=== PATIENT | female | born 1995 | race Caucasian/White ===

== ENCOUNTER → 2017-10-29 18:33 | Outpatient (CLI) | payer BC, SELFPAY ==
[2017-10-29 22:15] LABS: Chlamydia Trachomatis by PCR Negative (Negative); Neisserai gonorrhoeae by PCR Negative (Negative); Probe Check PASS; Sample Adequacy Control PASS; Specimen Processing Control PASS
== END ==
PROVIDERS: Visit Provider Obstetrics & Gynecology
DX: Z11.3 Encounter for screening for infections with a predominantly sexual mode of transmission (principal)
CPT/HCPCS: 87491; 87591

== ENCOUNTER → 2017-11-26 15:18 | Outpatient (CLI) | payer BC, SELFPAY ==
[2017-11-26 17:37] LABS: Absolute Lymphocyte Count 1.87 X10^3/ul (0.83-4.51); Absolute Neutrophil Count 5.2 X10^3/uL (2.0-7.7); Basophil# 0.02 X10^3/uL; Basophil% 0.2 % (0-1); Eosinophil# 0.28 X10^3/uL; Eosinophils% 3.3 % (0-5); Hematocrit 36.2 % (37-47); Hemoglobin 12.5 g/dl (12.0-15.0); Lymphocyte # 1.87 X10^3/ul (4.0); Lymphocyte % 22.3 % (19-41); Mean Corp Hgb Conc 34.5 g/gl (32-36); Mean Corpuscular Volume 81.2 fL (81-99); Mean Platelet Vol. 12.2 fl (6.2-12.0); Monocyte# 0.96 X10^3/uL; Monocyte% 11.5 % (0-10); Neutrophil % 62.2 % (47-70); Platelet Count 159 K/mm3 (150-450); RBC Distribution Width CV 15.2 % (11.6-14.6); RBC Distribution Width SD 44.2 fl (35.1-43.9); Red Blood Count 4.46 M/mm3 (4.2-5.4); White Blood Count 8.4 K/mm3 (4.4-11.0)
[2017-11-26 17:39] LABS: POSITIVE COUNT NO; POSITIVE DIFFERENTIAL NO; POSITIVE MORPHOLOGY NO
[2017-11-26 17:52] LABS: Thyroid Stim Hormone (TSH) 5.31 uIU/mL (0.358-3.74)
[2017-11-26 17:55] LABS: Amphetamine Urine VISTA NEGATIVE (<1000 ng/mL); Barbiturate Urine VISTA NEGATIVE (< 200 ng/mL); Benzodiazepine Urine VISTA NEGATIVE (< 200 ng/mL); Cocaine Urine VISTA NEGATIVE (< 300 ng/mL); Ecstacy Urine VISTA NEGATIVE (< 500 ng/mL); Methadone Urine VISTA NEGATIVE (< 300 ng/mL); PCP Urine VISTA NEGATIVE (< 25 ng/mL); THC Urine VISTA NEGATIVE (< 50 ng/mL); Vista UDS pH Range 6
[2017-11-26 18:07] LABS: Color, Urine Yellow (Yellow); Glucose, Dipstick Normal (Normal); Ketone-Dipstick Negative (Negative); Leukocyte Esterase-Dipstick 25 /ul (Negative); Nitrite-Dipstick Negative (Negative); Occult Blood-Urine Negative /ul (Negative); Protein-Dipstick Negative (Negative); Urine Bilirubin Dipstick Negative (Negative); Urine Clarity Sl. Cloudy (Clear); Urine Urobilinogen Normal (Normal); Urine pH 6.5 (5.0 - 8.0)
[2017-11-26 19:08] LABS: COTININE Drug Screen Negative (<200 ng/mL)
[2017-11-27 13:58] LABS: HIV - WCH Non-Reactive (Nonreactive); Rubella IgG 56.9 IU/mL; Vitamin D,25 Hydroxy 22.8 ng/mL (29.95-100.01)
[2017-11-28 08:41] LABS: HEPATITIS B SURFACE AG Negative (Negative); Hep C Antibodies 0.1 s/co ratio (0.0-0.9)
[2017-11-29 03:58] LABS: Prenatal RPR NONREACTIVE (NONREACTIVE)
[2017-11-29 14:09] LABS: Free T3 3.4 pg/mL (2.18-3.98); T4 Free Direct 1.04 ng/dL (0.76-1.46)
[2017-12-02 22:08] LABS: Thyroid Peroxidase AB 7 IU/mL (0-34)
[2017-12-03 10:29] LABS: Thyroglobulin Antibody < 1.0 IU/mL (0.0-0.9)
== END ==
PROVIDERS: Visit Provider Obstetrics & Gynecology
DX: Z34.82 Encounter for supervision of other normal pregnancy, second trimester (principal)
CPT/HCPCS: 36415; 80307; 81002; 82306; 84439; 84443; 84481; 85025; 86376; 86703; 86762; 86800; 86803; 87340

== ENCOUNTER → 2017-12-11 09:48 | Outpatient (CLI) | payer BC, SELFPAY | PROVIDERS: Visit Provider Obstetrics & Gynecology | DX: E03.9 Hypothyroidism, unspecified (principal) | CPT/HCPCS: 76536 ==

== ENCOUNTER → 2018-02-18 15:08 | Outpatient (CLI) | payer BC, MEDICAID, SELFPAY ==
[2018-02-18 18:08] LABS: Hematocrit 32.9 % (37-47); Hemoglobin 10.6 g/dl (12.0-15.0); Mean Corp Hgb Conc 32.2 g/gl (32-36); Mean Corpuscular Hgb 27.5 pg (27.0-32.0); Mean Corpuscular Volume 85.5 fL (81-99); Mean Platelet Vol. 11.4 fl (6.2-12.0); Platelet Count 206 K/mm3 (150-450); RBC Distribution Width CV 12.6 % (11.6-14.6); RBC Distribution Width SD 38.6 fl (35.1-43.9); Red Blood Count 3.85 M/mm3 (4.2-5.4); Scan Indicated on CBC? Y/N NO; White Blood Count 11.4 K/mm3 (4.4-11.0)
[2018-02-18 18:21] LABS: Free T3 2.2 pg/mL (2.18-3.98); Glucose Challenge Gest 1H 50g 112 mg/dL (70-140); T4 Free Direct 0.94 ng/dL (0.76-1.46); Thyroid Stim Hormone (TSH) 1.74 uIU/mL (0.358-3.74)
== END ==
PROVIDERS: Visit Provider Obstetrics & Gynecology
DX: Z34.82 Encounter for supervision of other normal pregnancy, second trimester (principal)
CPT/HCPCS: 36415; 82950; 84439; 84443; 84481; 85027; 86850

== ENCOUNTER 2018-02-25 16:20 | Emergency (ER) | payer BC, MEDICAID, SELFPAY ==
[2018-02-25 16:22] VITALS: BP 156/78; PULSE 99; RESP 18; TEMP 36.9; O2SAT 100; BMI 21.6
--- NOTE | 2018-02-25 16:41 | EKG12_ITS ---
Test Reason : SOB CP Blood Pressure : / mmHG Vent. Rate : 125 BPM Atrial Rate : 125 BPM P-R Int : 130 ms QRS Dur : 080 ms QT Int : 294 ms P-R-T Axes : 059 038 043 degrees QTc Int : 424 ms Sinus tachycardia Cannot rule out Inferior infarct , age undetermined Abnormal ECG Confirmed by ANTHONY HAYDEN, JANETTE ([id number]), book or script editor MARILEE ROSALES ([id number]) on 02/28/2018 1:36:07 PM Referred By: HERBIE Confirmed By:JANETTE CRUZ MD
--- NOTE | 2018-02-25 16:45 | RAD_ITS ---
STUDY: X-RAY CHEST REASON FOR EXAM: Female, 22 years old. Shortness of breath and chest pain at 28 weeks . TECHNIQUE: Single AP portable view of the chest. The patient was shielded during the examination. COMPARISON: None. FINDINGS: Telemetry wires overlie the chest. The lungs are clear and expanded. There is no demonstrated pleural abnormality. Normal size heart. Normal mediastinum and vernon. Normal visualized pulmonary arteries. Normal visualized aortic arch and descending thoracic aorta. Normal visualized thoracic spine. Normal visualized ribs, clavicles, and shoulders. There is no demonstrated abnormality of the visualized soft tissue structures of the upper abdomen. RAD/Chest 1 View (Portable) IMPRESSION: Normal x-ray examination of the chest. Electronically Signed: Marcello Argueta DO at 16:56 EST Tel [phone], Service support ,
--- NOTE | 2018-02-25 16:45 | NURSING ---
NO OLD EKGS
[2018-02-25] MEDS: 0.9% Normal Saline 1,000 ML 150 ML IV (17:04)
[2018-02-25 17:05] VITALS: PULSE 116; RESP 15; O2SAT 100; O2SAT 99
[2018-02-25 17:19] LABS: Absolute Lymphocyte Count 1.99 X10^3/ul (0.83-4.51); Absolute Neutrophil Count 8.5 X10^3/uL (2.0-7.7); Basophil# 0.06 X10^3/uL; Basophil% 0.5 % (0-1); Eosinophil# 0.26 X10^3/uL; Eosinophils% 2.2 % (0-5); Hematocrit 32.1 % (37-47); Hemoglobin 10.3 g/dl (12.0-15.0); Lymphocyte # 1.99 X10^3/ul (4.0); Lymphocyte % 16.8 % (19-41); Mean Corp Hgb Conc 32.1 g/gl (32-36); Mean Platelet Vol. 10.8 fl (6.2-12.0); Monocyte# 0.89 X10^3/uL; Monocyte% 7.5 % (0-10); Neutrophil # 8.45 X10^3/uL (2.7-7.7); Neutrophil % 71.1 % (47-70); Platelet Count 200 K/mm3 (150-450); RBC Distribution Width CV 12.6 % (11.6-14.6); RBC Distribution Width SD 37.7 fl (35.1-43.9); Red Blood Count 3.82 M/mm3 (4.2-5.4); White Blood Count 11.9 K/mm3 (4.4-11.0)
[2018-02-25 17:22] LABS: POSITIVE COUNT NO; POSITIVE DIFFERENTIAL NO; POSITIVE MORPHOLOGY NO
[2018-02-25 17:29] LABS: AST(SGOT) 11 U/L (15-37); Alanine Aminotransfer ALT/SGPT 17 U/L (13-56); Albumin, Serum 3.1 g/dL (3.2-5.0); Alkaline Phosphatase 57 U/L (45-117); Anion Gap 8 (5-15); BUN 9 mg/dL (7-18); BUN/Creat Ratio 16.8 RATIO (10-20); Bilirubin, Direct 0.09 mg/dL (0.00-0.30); Calcium,Total 8.7 mg/dL (8.5-10.1); Chloride 107 mmol/L (98-107); Creatinine, Serum 0.54 mg/dL (0.55-1.02); EST Glomerular Filtration Rate 154 mL/min (>60); Est Glom Filt Rate - Afr Amer 186 mL/min (>60); Estimated Creatinine Clearance 167.64 ml/min; Globulin 3.7 g/dL (2.2-4.2); Glucose 88 mg/dL (74-106); Lipase 114 U/L (73-393); Potassium 3.7 mmol/L (3.5-5.1); Protein, Total 6.8 g/dL (6.4-8.2); Sodium Level 138 mmol/L (136-145)
--- NOTE | 2018-02-25 17:53 | ED.RN ---
LAB CALLS WITH CRITICAL RESULTS OF D-MD DARA AND PRIMARY RN NOTIFIED.
[2018-02-25 18:00] VITALS: BP 118/89; PULSE 88; RESP 15; O2SAT 99
--- NOTE | 2018-02-25 19:40 | ED.DCSUM_ITS ---
- ER Visit Summary Date of Service: 02/25/18 Chief Complaint: Chest pain, shortness of breath History of Present Illness: The patient is a 22 F who is currently 28 weeks . She states she has had shortness of breath for several months. She had chest pain for the past 2 days since starting iron pills. She does point to the lower sternal area and epigastric region. Physical Examination: Blood pressure is 156/78, temperature 98.4, heart rate 99, respiratory rate 18, pulse ox 100% on room air. When I enter the room for her examination her heart rate is in the 120s-130s. Respiratory rate and oxygen saturations are normal. Patient sitting upright in bed no acute distress. She is alert and talkative. Head neck examination is unremarkable. Heart is tachycardic and regular. Lung sounds are clear. Abdomen is soft with gravid uterus. She has no focal tenderness on exam. Lower extreme examination was no calf tenderness or edema. Test Results: EKG is sinus tach at 125 with no sign of acute ischemia. Portable chest x-ray is unremarkable. CBC was a white count 11.9 and hemoglobin 10.3. Chemistry studies normal. LFTs and lipase normal. Troponin negative. D-dimer slightly elevated at 0.90. Emergency Department Course and Treatment: Patient was given fluids along with IV Pepcid. On repeat evaluation she states her pain is resolved and she is eating Chez-its. We discussed the elevation in d-dimer and the fact that I cannot completely rule out a pulmonary embolus, although my suspicion is low in light of the fact that she does not have pleuritic pain, tachycardia, or hypoxia. I suspect that she has reflux disease that has been worsening since she started taking iron supplements. Patient was offered CT of the chest and declined. She states she will return if her symptoms worsen. She will be given a prescription for Pepcid. I did speak with the patient's ATTORNEY GENERAL, Dr. Alona Funes. Patient will follow-up in the office. Treatment Plan: [] Disposition: Discharge Impression: 1. Atypical chest pain 2. Reflux disease This note was generated with [employer] software. It may contain incorrect words, spelling, and punctuation that were not noted in review of the chart prior to signing ED Disposition - Plan for ED Patient: Disposition: Home or Assisted Living Chief Complaint: Shortness of Breath Instructions: ED Chest Pain Atypical Unkn Cause Prescriptions: Famotidine [Pepcid] 20 mg PO BID #28 tablet Referrals: Evert Alvarado DO [Primary Care Provider] - Yolie Macdonald MD [STAFF PHYSICIAN] -
[2018-02-25 19:50] VITALS: BP 110/82; PULSE 118; RESP 16; O2SAT 93
== END 2018-02-25 19:52 | disposition home or self-care (01) ==
PROVIDERS: Emergency Provider Emergency Medicine; Family Provider Family Medicine; PCP Family Medicine
DX: O26.893 Other specified pregnancy related conditions, third trimester (principal); R07.89 Other chest pain; R74.8 Abnormal levels of other serum enzymes; R06.02 Shortness of breath; K21.9 Gastro-esophageal reflux disease without esophagitis; Z79.899 Other long term (current) drug therapy; Z3A.28 28 weeks gestation of pregnancy
CPT/HCPCS: 71045; 80048; 80076; 83690; 84484; 85025; 85379; 93005; 96361; 96374; 99284; J7030; J7040; A4216; J3490

== ENCOUNTER → 2018-04-11 16:32 | Outpatient (CLI) | payer BC, MEDICAID, SELFPAY | PROVIDERS: Visit Provider Obstetrics & Gynecology | DX: Z36.85 Encounter for antenatal screening for Streptococcus B (principal) | CPT/HCPCS: 87081 ==

== ENCOUNTER 2018-05-15 20:42 | Inpatient (IN) | payer BC, MEDICAID, SELFPAY ==
[2018-05-15] MEDS: Lactated Ringers 1,000 ML 50 ML IV (21:15)
[2018-05-15] MEDS: 0.9% Saline Lock 10 ML Syringe IV (21:36)
[2018-05-15 21:43] VITALS: BMI 23.9
[2018-05-15] MEDS: 0.9% Normal Saline 100 ML IV.SOLN. INTRA-UTER (21:56)
[2018-05-15 21:58] LABS: Hematocrit 38.4 % (37-47); Hemoglobin 12.8 g/dl (12.0-15.0); Mean Corp Hgb Conc 33.3 g/gl (32-36); Mean Corpuscular Hgb 28.5 pg (27.0-32.0); Mean Corpuscular Volume 85.5 fL (81-99); Platelet Count 159 K/mm3 (150-450); RBC Distribution Width CV 17.1 % (11.6-14.6); RBC Distribution Width SD 53.1 fl (35.1-43.9); Red Blood Count 4.49 M/mm3 (4.2-5.4); White Blood Count 11.4 K/mm3 (4.4-11.0)
[2018-05-15 21:59] LABS: Scan Indicated on CBC? Y/N NO
--- NOTE | 2018-05-15 22:12 | HP.PCM_ITS ---
- Problem List (1) 39 weeks gestation of Status: Acute (2) Decreased movement Status: Acute Qualifiers: Fetus number: single or unspecified fetus Trimester: third trimester Qualified Code(s): O36.8130 - Decreased movements, third trimester, not applicable or unspecified History Date of Admission: 05/15/18 Final ARTURO: 05/16/18 Final ARTURO Source: US <20 weeks Gestational age: 39 Weeks and 6 Days History of this : This is a 22 year-old, G 1 P0 @ 39 6/7 weeks gestational age presenting for induction of labor for decreased movement. Patient was seen in the office today with c/o no movement since 05/13/18. NST was nonreactive, BPP 8/10 (-2 for NST). She reports minimal movement since office evaluation this morning. +contractions. No leaking of fluid or vaginal bleeding. Medical History: Medical History (Last Updated 05/15/18 @ 22:12 by Yolie Macdonald MD) Anemia D64.9 Anxiety F41.9 Subclinical hypothyroidism E03.9 Allergies No Known Allergies Allergy (Verified 05/15/18 21:36) Home Medications: Home Medications Ferrous Sulfate 325 mg PO DAILY 02/25/18 Levothyroxine [Synthroid] 50 mcg PO DAILY 02/25/18 Cholecalciferol (Vitamin D3) [Vitamin D3] 50 mcg PO DAILY 05/15/18 Pnv No.103/Folic/Om3s/Fish Oil [ Gummies] 1 each PO DAILY 05/15/18 Sertraline HCl [Zoloft] 50 mg PO DAILY 05/15/18 Smoking Status: Never smoker Alcohol: None Number of Fetus(es): 1 Heart Tracin, moderate variability, + accelerations, no decelerations TOCO Analysis: 2/10 min History Past Pregnancies: Past Pregnancies Delivery Date Name GA/Weeks Outcome Route Weight Gender Labor Length Anesthesia Delivery Location Provider FOB Labs: Labs 05/15/18 21:15 WBC 11.4 H RBC 4.49 Hgb 12.8 Hct 38.4 MCV 85.5 MCH 28.5 MCHC 33.3 RDW 17.1 H RDW Differential 53.1 H Plt Count 159 MPV 12.0 Mom's Problem List Problem Status Onset Code 39 weeks gestation of Acute Z3A.39 Decreased movement Acute O36.8190 Mom's Labs & Results 05/15/18 05/15/18 21:15 21:15 WBC 11.4 H RBC 4.49 Hgb 12.8 Hct 38.4 MCV 85.5 MCH 28.5 MCHC 33.3 RDW 17.1 H RDW Differential 53.1 H Plt Count 159 MPV 12.0 Blood Type Pending Antibody Screen Pending Course Did the patient receive Yes care? Labs Blood Type: A RH: NEGATIVE RPR/VDRL/Syphilis Nonreactive Rubella status Immune HbSAg Negative Date Done: 11/26/17 Chlamydia Negative Gonorrhea Negative HIV/AIDS Non-Reactive Group B Strep: Negative Social History Marital Status: SINGLE Alleged father Seng [place] Smoking No Smoking Status Never smoker How long have you used n/a substances (years)? What date/time did you last n/a use any of the above? Have you had any previous n/a inpatient or outpatient treatment Expected Infant Delivery Method: Spontaneous Vaginal Number of Visits: 14 Review of Systems Cardiovascular: Denies: Chest Pain Respiratory: Denies: Shortness of Breath Gynecological: Reports: - - contractions. Denies: Vaginal bleeding Psychiatric: Reports: Anxiety Physical Exam Vitals: AVSS General: Alert, Oriented x3, Cooperative, No apparent distress HEENT: Atraumatic, Normocephalic Cardiovascular: Regular rate, Regular Rhythm Lungs: Normal air movement Abdomen: Soft, Non Tender, Non-Distended, Gravid Extremities:: No edema Neurological: Neuro grossly intact ONLINE CONTENT DEVELOPER: Normal external genitalia Estimated gestational size: Appropriate for gestational size Presentation: - - on US this afternoon Cervix Dilation (cm): 1 Effacement (%): 60 Assessment/Plan All Active Problems 39 weeks gestation of (Acute) Decreased movement (Acute) This is a 22 year-old, G [1], P [0], at 39 weeks gestational age -Cytotec ordered, cruz bulb placed - pt tolerated well. -Continuous EFM -LARC declined -Consents signed -Patient and family given opportunity to ask questions and questions answered to their satisfaction.
[2018-05-15] MEDS: miSOPROStol 25 MCG TABLET PO (22:33)
[2018-05-16] MEDS: Loperamide 2 MG Capsule PO (00:40)
[2018-05-16] MEDS: Lactated Ringers 1,000 ML 50 ML IV ×2 (01:50→06:41)
[2018-05-16] MEDS: fentaNYL-bupivacaine (epidural) 100 ML BAG EPIDURAL ×2 (02:12→09:30)
[2018-05-16] MEDS: Ondansetron 4 MG/2 ML Vial IV (03:25)
[2018-05-16] MEDS: proMETHazine 25 MG/ML Syringe IV (03:43)
[2018-05-16] MEDS: Oxytocin 30 units/NS 500 ml 30 UNITS/500 ML IV.SOLN IV (05:33)
--- NOTE | 2018-05-16 08:30 | PCM.PN.BLA ---
Progress Note LABOR PROGRESS NOTE Reports back pain with contractions. AVSS GEN - NAD, AAO x 3 SVE 6/90/-1, soft and anterior TOCO 4/10 min FHR 150, moderate variability, + acceleartions, no decelerations A/P: 22 you G1 @ 40wga in active labor, Cat I FHR -Amniotomy performed, IUPC, ISE placed -Continue pitocin as tolerated by mother and fetus
[2018-05-16] MEDS: Oxytocin 30 units/NS 500 ml 30 UNITS/500 ML IV.SOLN 334 UNITS IV (11:19)
[2018-05-16] MEDS: Oxytocin 30 units/NS 500 ml 30 UNITS/500 ML IV.SOLN 167 UNITS IV (11:39)
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
[2018-05-16 16:10] VITALS: BP 119/80; PULSE 91; RESP 16; TEMP 37.1; O2SAT 100
--- NOTE | 2018-05-16 16:24 | PCM.OB.VAG ---
- Problem List (1) 39 weeks gestation of Status: Acute (2) Decreased movement Status: Acute Qualifiers: Fetus number: single or unspecified fetus Trimester: third trimester Qualified Code(s): O36.8130 - Decreased movements, third trimester, not applicable or unspecified Vaginal Delivery Maternal Presentation: Medically Indicated Induction Method of Induction: Pitocin, Hobson Bulb, Amniotomy, Cytotec Medical Reason for Induction: - - Decreased movement at term Amniotic Membrane Rupture Type: Artificial Rupture of Membrane time: 05/16/18 0823h Amniotic Fluid Description: Clear Final ARTURO: 05/16/18 Gestational age: 40 Weeks and 0 Days Date of Procedure: 05/16/18 Pre-Operative Diagnosis: 40 wga Post-Operative Diagnosis: 40 wga Surgery/ Procedure Performed: Spontaneous Vaginal Delivery Anesthesiologist: Tone Collins Type of Anesthesia: Epidural Description of Procedure: Patient was FD/+4 on my arrival. She pushed to deliver a vigorous female in [place]. The was placed on the maternal abdomen and further attended by nursery personnel. The cord was doubly clamped and cut. Cord blood sample was obtained. The placenta delivered spontaneously and appeared intact on inspection. Iv pitocin started and intrauterine exam performed. There was increase bleeding from the uterus without hemorrhage. The fundus was firm. Clots were retrieved from the lower uterine segment multiple times with improvement of bleeding. Bedside US performed demonstrating a thin endometrium with no evidence of color Doppler flow. A second degree perineal laceration was repaired with 3-0 Vicryl Rapide however the site remained oozing. Allis clamps were applied and left at this site. There was good hemostasis. I subsequently removed the clamps approximately 3 hours later with good hemostasis remaining. Sponge and needle counts were correct x 2. Presentation: Vertex Placental Delivery Description: Spontaneous Placenta Disposition: [facility] Cord Vessel Description: 3 Vessels Nuchal Cord Compression: Without compression Cord Entanglement: None Drain: Hobson to straight drain Estimated Blood Loss: 450 ml A gender: Female (1 minute): 8 (5 minute): 9 Episiotomy Description: None Laceration: Midline, Perineal Extension/lac, 2nd degree Medications given after delivery: IV Pitocin Complications: None
--- NOTE | 2018-05-16 16:32 | OP.PCM_ITS ---
- Problem List (1) 39 weeks gestation of Status: Acute (2) Decreased movement Status: Acute Qualifiers: Fetus number: single or unspecified fetus Trimester: third trimester Qualified Code(s): O36.8130 - Decreased movements, third trimester, not applicable or unspecified Vaginal Delivery Maternal Presentation: Medically Indicated Induction Method of Induction: Pitocin, Hobson Bulb, Amniotomy, Cytotec Medical Reason for Induction: - - Decreased movement at term Amniotic Membrane Rupture Type: Artificial Rupture of Membrane time: 05/16/18 0823h Amniotic Fluid Description: Clear Final ARTURO: 05/16/18 Gestational age: 40 Weeks and 0 Days Date of Procedure: 05/16/18 Pre-Operative Diagnosis: 40 wga Post-Operative Diagnosis: 40 wga Surgery/ Procedure Performed: Spontaneous Vaginal Delivery Anesthesiologist: Tone Collins Type of Anesthesia: Epidural Description of Procedure: Patient was FD/+4 on my arrival. She pushed to deliver a vigorous female in [place]. The was placed on the maternal abdomen and further attended by nursery personnel. The cord was doubly clamped and cut. Cord blood sample was obtained. The placenta delivered spontaneously and appeared intact on i nspection. Iv pitocin started and intrauterine exam performed. There was increase bleeding from the uterus without hemorrhage. The fundus was firm. Clots were retrieved from the lower uterine segment multiple times with improvement of bleeding. Bedside US performed demonstrating a thin endometrium with no evidence of color Doppler flow. A second degree perineal laceration was repaired with 3-0 Vicryl Rapide however the site remained oozing. Allis clamps were applied and left at this site. There was good hemostasis. I subsequently removed the clamps approximately 3 hours later with good hem ostasis remaining. Sponge and needle counts were correct x 2. Presentation: Vertex Placental Delivery Description: Spontaneous Placenta Disposition: [facility] Cord Vessel Description: 3 Vessels Nuchal Cord Compression: Without compression Cord Entanglement: None Drain: Hobson to straight drain Estimated Blood Loss: 450 ml Infant A gender: Female (1 minute): 8 (5 minute): 9 Episiotomy Description: None Laceration: Midline, Perineal Extension/lac, 2nd degree Medications given after delivery: IV Pitocin Complications: None
--- NOTE | 2018-05-16 19:36 | DCINST_ITS ---
Discharge Diet: No Restrictions Discharge Activity: Return to Normal Activity, May Shower May resume sexual activity in: 6 weeks Lifting Restrictions: 20 lb Additional Activity Instructions:: Nothing in the vagina for 4-6 weeks. You may return to work/school in 6 weeks. Call your doctor if you observe: Fever of 101 or Higher, Inability to urinate, Inability to have a bowel movement, Using more than one pad per hour, Shortness of breath, Chest pain, Calf discomfort, Uncontrolled pain Suture Line Care: Avoid Pulling/Pushing Cleanse incision/area with: Soap & Water Additional Instructions: If you experience any of the following, contact your healthcare provider. * Bleeding that soaks a pad every hour for 2 hours * Fever 100.4 or higher * Unrelieved incision or abdominal pain * Swelling, redness, discharge or bleeding from your incision or episiotomy site * Your incision begins to separate * Problems urinating (including inability to urinate or burning while urinating). * Visual changes * Severe headache * Flu-like symptoms * Pain or redness in one of both of your breasts * Pain, warmth, tenderness or swelling in your legs, especially the calf area * Frequent nausea and vomiting * Symptoms of depression or anxiety If you experience any of the following, call 911 or go to the nearest Emergency Room. * Chest pain * Problems breathing * Seizure activity * Partial or complete paralysis of a body part, slurred speech, weakness or drooping of the face, or a sudden inability to walk or hold your balance Allergies/Adverse Reactions: Allergies No Known Allergies Allergy (Verified 05/15/18 21:36) Medications to take at Discharge Pnv No.103/Folic/Om3s/Fish Oil [ Gummies] 1 each PO DAILY 05/15/18 Sertraline HCl [Zoloft] 50 mg PO DAILY 05/15/18 Ibuprofen [Motrin] 600 mg PO Q8H PRN PRN #30 tablet 05/17/18 Senna/Docusate Sodium [Senokot-S] 1 - 2 tablet PO DAILY PRN PRN #60 tablet 05/17/18 The following prescriptions were given: Ibuprofen [Motrin] 600 mg PO Q8H PRN PRN #30 tablet PRN Reason: Pain Senna/Docusate Sodium [Senokot-S] 1 - 2 tablet PO DAILY PRN PRN #60 tablet PRN Reason: Constipation Please Follow Up With: Yolie Macdonald MD When: 2 weeks Test Results: Test results from this visit will be discussed in further detail at your follow- up appointment, if applicable.
[2018-05-16 19:59] VITALS: BP 118/74; PULSE 99; RESP 15; TEMP 36.8; O2SAT 98
[2018-05-16 23:11] VITALS: BP 111/74; PULSE 84; RESP 16; TEMP 36.2; O2SAT 97
[2018-05-17] MEDS: Acetaminophen 325 MG Tablet PO (01:13)
[2018-05-17 04:20] VITALS: BP 97/58; PULSE 70; RESP 14; TEMP 36.7; O2SAT 95
[2018-05-17] MEDS: Ibuprofen 600 MG Tablet PO ×3 (05:29→21:59)
--- NOTE | 2018-05-17 05:47 | NURSING ---
This RN reminded the pt. again to be more involved in 's care. Pt. has not yet changed a diaper and has only done one feeding when she was still in her labor room.
[2018-05-17 05:52] LABS: Hematocrit 29.6 % (37-47); Hemoglobin 9.8 g/dl (12.0-15.0); Mean Corp Hgb Conc 33.1 g/gl (32-36); Mean Corpuscular Hgb 28.4 pg (27.0-32.0); Mean Corpuscular Volume 85.8 fL (81-99); Mean Platelet Vol. 10.7 fl (6.2-12.0); Platelet Count 116 K/mm3 (150-450); RBC Distribution Width CV 17.5 % (11.6-14.6); RBC Distribution Width SD 55.3 fl (35.1-43.9); Red Blood Count 3.45 M/mm3 (4.2-5.4); White Blood Count 14.7 K/mm3 (4.4-11.0)
[2018-05-17 05:53] LABS: Scan Indicated on CBC? Y/N NO
--- NOTE | 2018-05-17 06:12 | PN.OBGYN_ITS ---
Patient Problems: Active and Suspected Problems (Last Updated 05/15/18 @ 22:12 by Yolie Funes MD) 39 weeks gestation of (Acute) Decreased movement (Acute) Subjective: No issues overnight. Reports heavy lochia, no overflow. Denies pain. She is bottlefeeding. Objective: AVSS - Physical Exam General: Alert, Oriented x3, Cooperative, No apparent distress HEENT: Atraumatic, Normocephalic Lungs: Clear to auscultation, Normal air movement Cardiovascular: Regular rate, Regular Rhythm, Normal S1, Normal S2 Abdomen: Soft, Non Tender, Non-Distended Extremities: No edema, No Calf Tenderness Neurological: Neuro grossly intact Psych/Mental Status: Normal Affect, Appropriate, Alert and oriented to time, place, person, mood and affect Vital Signs Temp Pulse Resp BP Pulse Ox 98.0 F 70 14 97/58 L 95 05/17/18 04:20 05/17/18 04:20 05/17/18 04:20 05/17/18 04:20 05/17/18 04:20 Oxygen Delivery Method Room Air Weight: 71.4 kg Body Mass Index (BMI) 23.9 Intake and Output for Last 24 Hours 05/15/18 05/16/18 05/17/18 23:59 23:59 23:59 Intake Total 4053 / 4053 Output Total 2600 / 2600 Balance 1453 / 1453 Laboratory Tests Past 24 Hrs 05/17/18 05:27 WBC 14.7 H RBC 3.45 L Hgb 9.8 L Hct 29.6 L MCV 85.8 MCH 28.4 MCHC 33.1 RDW 17.5 H RDW Differential 55.3 H Plt Count 116 L MPV 10.7 Medical Necessity - Tobacco Use Smoking Status: Never smoker Assessment/Plan All Active Problems (Last Updated 05/15/18 @ 22:12 by Yolie Macdonald MD) 39 weeks gestation of (Acute) Decreased movement (Acute) 22yo PPD#1 s/p doing well. -Rh negative - infant also Rh negative -Bottlefeeding -Routine care
[2018-05-17 08:30] VITALS: BP 99/65; PULSE 70; RESP 16; TEMP 36.3
--- NOTE | 2018-05-17 10:35 | CASEMGMT ---
MOB was seen by GARRETT Abad yesterday. [facility] Vat Worker asked SW to stop in to see MOB again today as MOB has not been participating in the care of the baby, has history of anxiety and depression. As per Arlene, MOB and baby will live with maternal grandmother and stepfather, and grandmother is taking a week off to help MOB at discharge. GARRETT spoke w/MOB, FODominique Ellsworth, and maternal grandmother iKm in room. SW asked MOB how she is feeling, MOB reports feeling good. SW spoke w/her again about her anxiety and depression, MOB feels like this is managed at present, she states plans to continue to take her medication for anxiety. SW spoke again to family and MOB about depression. SW also asked how the care for the baby is going, explained the nurses mentioned she has not done much care as of yet. FODominique states that she is starting to care for the baby, fed and burped her and changed her diaper. SW asked MOB how that was for her, she states it was good. She reports she feels she can care for the baby. She reports some experience caring for her friend's baby. SW asked about the home, ALEX reports that she lives w/her mom(Kim), step dad, two brothers, one of the brother's girlfriends, and her boyfriend. SW asked about Kim taking a week off work, Kim confirms she is going to take a week of of work to help. MOB reports that grandmother is going to teach her and FOB how to care for the baby. Kim states that MOB's job is to care for the baby and rest, and those will be her only responsibilities at present. Given the support MOB has, the referral made already to [facility] and a nurse visit, and that MOB is now caring for the baby, no further social service needs are anticipated. GARRETT informed RN and she will let the spinning frame changer know. SW remains available should any other needs arise. IVONNE Gonzalez
[2018-05-17] MEDS: Prenatal Vits Tablet 1 TABLET PO (13:31)
[2018-05-17 13:50] VITALS: BP 122/62; PULSE 62; RESP 16; TEMP 36.6
[2018-05-17] MEDS: Sertraline 50 MG Tablet PO (18:12)
[2018-05-17 20:00] VITALS: BP 114/76; PULSE 70; RESP 14; TEMP 36.6; O2SAT 100
[2018-05-18 01:30] VITALS: BP 118/81; PULSE 70; RESP 14; TEMP 36.9; O2SAT 98
--- NOTE | 2018-05-18 06:12 | PCM.PN.OB ---
Patient Problems: Active and Suspected Problems (Last Updated 05/15/18 @ 22:12 by Yolie Macdonald MD) (spontaneous vaginal delivery) (Acute) 39 weeks gestation of (Acute) Decreased movement (Acute) Subjective: No issues overnight. States she is becoming more comfortable taking care of baby. Denies heavy lochia or pain. No complaints. Anxiety doing okay. Objective: AVSS - Physical Exam General: Alert, Oriented x3, Cooperative, No apparent distress HEENT: Atraumatic, Normocephalic Lungs: Normal air movement Cardiovascular: Regular rate, Regular Rhythm Abdomen: Soft, Non Tender, Non-Distended, - - Fundus firm and nontender Extremities: No edema, No Calf Tenderness Neurological: Neuro grossly intact Psych/Mental Status: Normal Affect, Appropriate, Alert and oriented to time, place, person, mood and affect Vital Signs Temp Pulse Resp BP Pulse Ox 98.4 F 70 14 118/81 H 98 05/18/18 01:30 05/18/18 01:30 05/18/18 01:30 05/18/18 01:30 05/18/18 01:30 Oxygen Delivery Method Room Air Weight: 71.4 kg Body Mass Index (BMI) 23.9 Intake and Output for Last 24 Hours 05/16/18 05/17/18 05/18/18 23:59 23:59 23:59 Intake Total 4053 / 4053 Output Total 2600 / 2600 Balance 1453 / 1453 Medical Necessity - Tobacco Use Smoking Status: Never smoker Assessment/Plan All Active Problems (Last Updated 05/15/18 @ 22:12 by Yolie Macdonald MD) (spontaneous vaginal delivery) (Acute) 39 weeks gestation of (Acute) Decreased movement (Acute) 22yo PPD#2 s/p doing well. -Rh negative - infant also Rh negative -Bottlefeeding -Routine care -d/c home today - f/u in 1-2 weeks
[2018-05-18 08:20] VITALS: BP 116/77; PULSE 80; RESP 16; TEMP 36.6
--- NOTE | 2018-05-19 10:27 | CASEMGMT ---
Social Work Labor and Delivery Faxed [place] nurse visit referral to the [facility]'s confirmed fax at [phone]. Submitted [facility] referral via the [facility]'s secure web based referral system. \ Referrals made with MOB's stated consent to this mortgage loan underwriter on 05.16.2018. No other services requested or indicated. -IVONNE Gutierrez, DIRECTOR ATHLETIC
--- NOTE | 2018-05-22 14:58 | NURSING ---
States doing well, bottle feeding now. Baby doing well. States everyone was great.
== END 2018-05-18 09:55 | disposition home or self-care (01) | DRG 807 ==
PROVIDERS: Obstetrics & Gynecology; Admitting Provider Obstetrics & Gynecology; Referring Provider Obstetrics & Gynecology; Visit Provider Obstetrics & Gynecology
DX: O36.8130 Decreased fetal movements, third trimester, not applicable or unspecified (principal); O70.1 Second degree perineal laceration during delivery; O99.013 Anemia complicating pregnancy, third trimester; D64.9 Anemia, unspecified; O99.283 Endocrine, nutritional and metabolic diseases complicating pregnancy, third trimester; E02 Subclinical iodine-deficiency hypothyroidism; O99.343 Other mental disorders complicating pregnancy, third trimester; F41.9 Anxiety disorder, unspecified; Z3A.40 40 weeks gestation of pregnancy; Z37.0 Single live birth
CPT/HCPCS: 59025; 59050; 85027; 86850; 86900; 99218; J7120; A4216; G0378; J2405

== ENCOUNTER → 2018-06-02 13:30 | Outpatient (CLI) | payer BC, MEDICAID, SELFPAY ==
[2018-05-15 21:43] VITALS: BMI 23.9
[2018-06-02 14:19] LABS: Free T3 3.2 pg/mL (2.18-3.98); T4 Free Direct 1.23 ng/dL (0.76-1.46); Thyroid Stim Hormone (TSH) 0.23 uIU/mL (0.358-3.74)
== END ==
PROVIDERS: Referring Provider Obstetrics & Gynecology; Visit Provider Obstetrics & Gynecology
DX: E03.9 Hypothyroidism, unspecified (principal)
CPT/HCPCS: 84439; 84443; 84481

== ENCOUNTER → 2018-06-24 17:57 | Outpatient (CLI) | payer BC, MEDICAID, SELFPAY ==
[2018-06-28 17:01] LABS: HPV Reflexed? NOT INDICATED
== END ==
PROVIDERS: Referring Provider Obstetrics & Gynecology; Visit Provider Obstetrics & Gynecology
DX: Z12.4 Encounter for screening for malignant neoplasm of cervix (principal)
CPT/HCPCS: 87624; 88175; G0145

== ENCOUNTER → 2018-10-23 09:31 | Outpatient (CLI) | payer BC, MEDICAID, SELFPAY ==
[2018-10-23 11:14] LABS: Ferritin 6 ng/mL (8-252); Free T3 2.8 pg/mL (2.18-3.98); T4 Free Direct 0.78 ng/dL (0.76-1.46); Thyroid Stim Hormone (TSH) 1.95 uIU/mL (0.358-3.74)
[2018-10-23 11:16] LABS: Hematocrit 39.9 % (37-47); Hemoglobin 12.9 g/dL (12.0-15.0); Mean Corp Hgb Conc 32.3 g/dL (32-36); Mean Corpuscular Hgb 26.4 pg (27.0-32.0); Mean Corpuscular Volume 81.8 fL (81-99); Mean Platelet Vol. 11.7 fl (6.2-12.0); Platelet Count 173 K/mm3 (150-450); RBC Distribution Width CV 13.8 % (11.6-14.6); RBC Distribution Width SD 40.7 fl (35.1-43.9); Red Blood Count 4.88 M/mm3 (4.2-5.4); White Blood Count 4.9 K/mm3 (4.4-11.0)
[2018-10-24 17:21] LABS: Iron 72 ug/dL (50-170); Iron Binding Capacity,Total 373 ug/dL (250-450); PERCENT IRON SATURATION 19.3 % (15.0-55.0)
[2018-10-26 13:22] LABS: Transferrin 293 mg/dL (200-370)
== END ==
PROVIDERS: Visit Provider Obstetrics & Gynecology
DX: E61.1 Iron deficiency (principal); F41.9 Anxiety disorder, unspecified
CPT/HCPCS: 36415; 82533; 82728; 83540; 83550; 84439; 84443; 84466; 84481; 85027

== ENCOUNTER → 2020-01-19 15:38 | Outpatient (CLI) | payer BC, MEDICAID, SELFPAY ==
[2020-01-19 17:23] LABS: Absolute Neutrophil Count 3.7 X10^3/uL (2.0-7.7); Basophil# 0.04 X10^3/uL; Basophil% 0.6 % (0-1); Eosinophil# 0.29 X10^3/uL; Eosinophils% 4.3 % (0-5); Hemoglobin 12.4 g/dL (12.0-15.0); Lymphocyte % 29.6 % (19-41); Mean Corp Hgb Conc 32.6 g/dL (32-36); Mean Corpuscular Hgb 26.5 pg (27.0-32.0); Mean Corpuscular Volume 81.2 fL (81-99); Mean Platelet Vol. 12.2 fl (6.2-12.0); Monocyte# 0.73 X10^3/uL; Monocyte% 10.8 % (0-10); NRBC Flagged by Analyzer 0 % (0-5); Neutrophil # 3.67 X10^3/uL (2.7-7.7); Neutrophil % 54.4 % (47-70); Platelet Count 173 K/mm3 (150-450); RBC Distribution Width SD 43.9 fl (35.1-43.9); Red Blood Count 4.68 M/mm3 (4.2-5.4); White Blood Count 6.8 K/mm3 (4.4-11.0)
[2020-01-19 17:44] LABS: Thyroid Stim Hormone (TSH) 3.44 uIU/mL (0.358-3.74)
[2020-01-19 18:11] LABS: Amphetamine Urine VISTA NEGATIVE (<1000 ng/mL); Barbiturate Urine VISTA NEGATIVE (< 200 ng/mL); Benzodiazepine Urine VISTA NEGATIVE (< 200 ng/mL); Cocaine Urine VISTA NEGATIVE (< 300 ng/mL); Ecstacy Urine VISTA NEGATIVE (< 500 ng/mL); Methadone Urine VISTA NEGATIVE (< 300 ng/mL); PCP Urine VISTA NEGATIVE (< 25 ng/mL); THC Urine VISTA NEGATIVE (< 50 ng/mL); Vista UDS pH Range 5
[2020-01-19 18:18] LABS: Color, Urine Yellow (Yellow); Glucose, Dipstick Normal (Normal); Ketone-Dipstick Negative (Negative); Leukocyte Esterase-Dipstick 500 /ul (Negative); Nitrite-Dipstick Negative (Negative); Occult Blood-Urine Negative /ul (Negative); Protein-Dipstick Negative (Negative); Urine Bilirubin Dipstick Negative (Negative); Urine Clarity Sl. Cloudy (Clear); Urine Urobilinogen Normal (Normal)
[2020-01-20 09:48] LABS: HIV - WCH Non-Reactive (Nonreactive); Hepatitis B Surface Antigen Non-Reactive (Nonreactive); Hepatitis C Antibody Non-Reactive (Nonreactive); Rubella IgG 41.7 IU/mL
[2020-01-21 01:46] LABS: Prenatal RPR NONREACTIVE (NONREACTIVE)
[2020-01-21 18:00] LABS: Free T3 2.6 pg/mL (2.18-3.98); T4 Free Direct 0.91 ng/dL (0.76-1.46)
[2020-01-22 05:07] LABS: Chlamydia By Nucleic Acid AMP Negative (Negative)
[2020-01-22 07:46] LABS: Gonococcus By Nucleic Acid AMP Negative (Negative)
== END ==
PROVIDERS: Visit Provider Obstetrics & Gynecology
DX: Z34.81 Encounter for supervision of other normal pregnancy, first trimester (principal)
CPT/HCPCS: 36415; 80307; 81002; 84439; 84443; 84481; 85025; 86703; 86762; 86803; 87340; 87491; 87591

== ENCOUNTER → 2020-06-10 15:06 | Outpatient (CLI) | payer MEDICAID, SELFPAY ==
[2020-06-10 17:19] LABS: Hematocrit 36.7 % (37-47); Hemoglobin 11.8 g/dL (12.0-15.0); Mean Corp Hgb Conc 32.2 g/dL (32-36); Mean Corpuscular Hgb 28.9 pg (27.0-32.0); Mean Corpuscular Volume 89.7 fL (81-99); Mean Platelet Vol. 10.9 fl (6.2-12.0); Platelet Count 197 K/mm3 (150-450); RBC Distribution Width CV 13.2 % (11.6-14.6); RBC Distribution Width SD 43.3 fl (35.1-43.9); Red Blood Count 4.09 M/mm3 (4.2-5.4); White Blood Count 10.2 K/mm3 (4.4-11.0)
[2020-06-10 17:36] LABS: Glucose Challenge Gest 1H 50g 121 mg/dL (70-140); T4 Free Direct 0.85 ng/dL (0.76-1.46); Thyroid Stim Hormone (TSH) 3.04 uIU/mL (0.358-3.74)
== END ==
PROVIDERS: Visit Provider Student in an Organized Health Care Education/Training Program
DX: Z34.83 Encounter for supervision of other normal pregnancy, third trimester (principal); R94.6 Abnormal results of thyroid function studies
CPT/HCPCS: 36415; 82950; 84439; 84443; 85027; 86850; 87086; 87088

== ENCOUNTER → 2020-08-05 15:14 | Outpatient (CLI) | payer MEDICAID, SELFPAY | PROVIDERS: Visit Provider Obstetrics & Gynecology | DX: Z36.85 Encounter for antenatal screening for Streptococcus B (principal) | CPT/HCPCS: 87081 ==

== ENCOUNTER → 2020-08-11 10:06 | Outpatient (CLI) | payer MEDICAID, SELFPAY ==
[2020-08-11 10:55] LABS: Hematocrit 31.3 % (37-47); Hemoglobin 9.7 g/dL (12.0-15.0); Mean Corpuscular Hgb 25.4 pg (27.0-32.0); Mean Corpuscular Volume 81.9 fL (81-99); Mean Platelet Vol. 11.4 fl (6.2-12.0); Platelet Count 187 K/mm3 (150-450); RBC Distribution Width CV 13.2 % (11.6-14.6); Red Blood Count 3.82 M/mm3 (4.2-5.4); White Blood Count 11.2 K/mm3 (4.4-11.0)
[2020-08-11 11:50] LABS: Internal QC Validated? YES +Cl - CLEAR BKGD; Monotest Negative (Negative)
== END ==
PROVIDERS: Visit Provider Obstetrics & Gynecology
DX: R59.1 Generalized enlarged lymph nodes (principal)
CPT/HCPCS: 36415; 85027; 86308

== ENCOUNTER 2020-08-11 19:22 | Inpatient (IN) | payer MEDICAID, SELFPAY ==
[2020-08-11 19:29] VITALS: BMI 24.4
[2020-08-11] MEDS: Lactated Ringers 1,000 ML 50 ML IV (19:55)
[2020-08-11 20:21] LABS: Absolute Lymphocyte Count 1.88 X10^3/uL (0.83-4.51); Absolute Neutrophil Count 7.7 X10^3/uL (2.0-7.7); Basophil# 0.04 X10^3/uL; Basophil% 0.4 % (0-1); Eosinophil# 0.18 X10^3/uL; Eosinophils% 1.6 % (0-5); Hematocrit 29.7 % (37-47); Hemoglobin 9.5 g/dL (12.0-15.0); Lymphocyte # 1.88 X10^3/ul (0.83-4.51); Lymphocyte % 16.8 % (19-41); Mean Corpuscular Volume 81.4 fL (81-99); Mean Platelet Vol. 11.7 fl (6.2-12.0); Monocyte# 1.18 X10^3/uL; Monocyte% 10.6 % (0-10); NRBC Flagged by Analyzer 0 % (0-5); Neutrophil # 7.68 X10^3/uL (2.7-7.7); Neutrophil % 68.6 % (47-70); Platelet Count 197 K/mm3 (150-450); RBC Distribution Width CV 13.2 % (11.6-14.6); RBC Distribution Width SD 38.6 fl (35.1-43.9); Red Blood Count 3.65 M/mm3 (4.2-5.4); White Blood Count 11.2 K/mm3 (4.4-11.0)
[2020-08-11 20:41] VITALS: BP 127/87; PULSE 89; TEMP 36.8
[2020-08-11 20:56] VITALS: PULSE 86; O2SAT 98
[2020-08-11] MEDS: miSOPROStol 25 MCG TABLET PO (21:23)
[2020-08-11 22:48] VITALS: PULSE 81; O2SAT 98
[2020-08-12] VITALS (72 sets, daily range): BP systolic 105–135; BP diastolic 67–90; PULSE 65–245; RESP 16–18; TEMP 36.4–37.3; O2SAT 83–100
[2020-08-12] MEDS: Oxytocin 30 units/NS 500 ml 30 UNITS/500 ML IV.SOLN IV (03:37)
--- NOTE | 2020-08-12 07:40 | PCM.HP.OB ---
HPI - General General Date of Admission: 08/11/20 HPI Narrative JOE HALE, is a 24 F 2 P 1001 @ 37 4/7 wga presenting for IOL for persistent decreased movement. [facility] Medical History (Updated 08/12/20 @ 07:[address] Yolie Funes MD) Anemia Anxiety Subclinical hypothyroidism Home Medications with DHA-Folic Acid 1 ea PO DAILY 05/15/18 [History Last Taken 08/11/20] venlafaxine [Effexor XR] 150 mg PO DAILY 08/11/20 [History Last Taken 08/11/20] Allergy/AdvReac Type Severity Reaction Status Date / Time No Known Allergies Allergy Verified 08/11/20 20:20 Social History Smoking Status: Never smoker History Elective abortions Hx Para 1 Spontaneous abortions Hx # Term Pregnancies Ectopic pregnancies Hx # Pregnancies Multiple births # of living children NST FHR Rate Baby A Baseline: 160 Variability:: Moderate Accelerations:: 15 x 15 Decelerations:: Variable NST Reactive:: Yes FHR Category:: Category II Uterine Activity:: 5/10 ROS Cardiovascular Cardiovascular: Reports none Respiratory/Chest Respiratory/Chest: Reports none Gastrointestinal Gastrointestinal: Reports none Vital Signs Vital Signs Vital Signs: 08/11/20 20:41 08/11/20 20:56 08/11/20 22:48 Temperature 98.3 F Temperature Source Pulse Rate 89 86 81 Blood Pressure 127/87 H BP Systolic 127 BP Diastolic 87 Pulse Ox 98 98 08/12/20 00:41 08/12/20 00:44 08/12/20 01:56 Temperature 98.6 F Temperature Source Pulse Rate 95 104 H Blood Pressure 122/78 H BP Systolic 122 BP Diastolic 78 Pulse Ox 98 98 08/12/20 03:25 08/12/20 03:38 08/12/20 03:39 Temperature 98.1 F Temperature Source Temporal Pulse Rate 73 79 Blood Pressure 117/71 BP Systolic 117 BP Diastolic 71 Pulse Ox 97 99 08/12/20 04:39 08/12/20 05:44 08/12/20 05:45 Temperature 98.3 F 98.0 F Temperature Source Temporal Temporal Pulse Rate 85 86 Blood Pressure 129/90 H 109/67 BP Systolic 129 109 BP Diastolic 90 67 Pulse Ox 08/12/20 06:36 08/12/20 07:22 Temperature 98.1 F 98.8 F Temperature Source Temporal Temporal Pulse Rate 79 84 Blood Pressure 121/77 H 134/85 H BP Systolic 121 134 BP Diastolic 77 85 Pulse Ox 98 98 Physical Exam Const alert, oriented x3 and no apparent distress General Appearance: cooperative and comfortable Orientation / Consciousness: awake, oriented to person, oriented to place and oriented to time Exam Limitations: no limitations HEENT normocephalic Eyes no scleral icterus Resp normal respiratory effort and normal air movement Cardio Rate: regular rate Rhythm: regular rhythm GI soft to palpation and non-tender Inspection: other Other Details: gravid OB / External & Speculum: external exam normal Manual OB Exam: dilated 2.5cm, effaced 60, station -3 and other moderate and midposition Amniotic Fluid: clear amniotic fluid Extremity normal to inspection General Extremity: normal exam except as noted Skin no rashes or lesions noted Neuro oriented x3 and moves all extremities Psych mental status grossly normal Assessment & Plan (1) 37 weeks gestation of : (2) Decreased movement: QUALIFIERS: Fetus number: single or unspecified fetus Trimester: third trimester Qualified Code(s): O36.8130 - Decreased movements, third trimester, not applicable or unspecified COMMENT: Persistent decreased movement PLAN: IOL - pt s/p cytotec and on pitocin. r/b AROM reviewed. Pt agreeable to proceed. Amniotomy performed with clear fluid. Continuous monitoring If no change on repeat exam, place IU.
[2020-08-12] MEDS: Lactated Ringers 500 ML 999 ML IV (08:27)
[2020-08-12] MEDS: fentaNYL-bupivacaine (epidural) 100 ML BAG EPIDURAL (09:55)
[2020-08-12] MEDS: Lactated Ringers 1,000 ML 200 ML IV (10:04)
[2020-08-12] MEDS: Ondansetron 4 MG/2 ML Vial IV (10:42)
[2020-08-12] MEDS: 0.9% Saline Lock 10 ML Syringe IV ×2 (10:43→14:31)
[2020-08-12] MEDS: Oxytocin 30 units/NS 500 ml 30 UNITS/500 ML IV.SOLN 334 UNITS IV (11:33)
--- NOTE | 2020-08-12 11:48 | PCM.OPRPT ---
Problems Associated Problem List Diagnoses (1) (spontaneous vaginal delivery): Report of Operation Date of Procedure: 08/12/20 Pre-Operative Diagnosis: 37 5/7 weeks gestation Persistent decreased movement Post-Operative Diagnosis: 37 5/7 weeks gestation Persistent decreased movement Surgery/Procedure Performed:: Spontaneous vaginal delivery Type of Anesthesia: Epidural Anesthesiologist: Belem Bull Estimated Blood Loss (mL): 300 Description of Procedure: Patient was FD/+3 on my arrival. FHR Cat II with moderate variability. Patient pushed to deliver infant head in NIDIA. Infant mouth and nares were bulb suctioned on the perineum. Infant shoulders and body delivered with ease revealing male . The cord was doubly clamped and cut at approximately 30 seconds of life [facility]. The placenta delivered spontaneously and appeared intact on inspection. Bilateral vaginal lacerations were repaired with 3-0 Vicryl Rapide with good hemostasis. Sponge counts correct x 2. Apgars 8, 9 Complications None Admit VTE Documentation VTE Present on Admission: No VTE Mechan Device Prophylaxis: None VTE Pharm Prophylaxis ordered?: No
[2020-08-12] MEDS: Venlafaxine XR 150 MG Capsule PO (13:28)
[2020-08-13 03:33] VITALS: BP 118/80; PULSE 74; PULSE 75; O2SAT 100
[2020-08-13 03:41] VITALS: BP 118/80; PULSE 78; RESP 16; TEMP 36.7; O2SAT 99
[2020-08-13 09:14] VITALS: BP 124/82; PULSE 90; RESP 14; TEMP 36.7
[2020-08-13 09:15] VITALS: BP 124/82; PULSE 90
--- NOTE | 2020-08-13 09:35 | PN.OBGYN_ITS ---
Subjective Subjective: No overnight complaints. Pain well controlled. Objective Data Objective Data Vital Signs: Vital Signs Temp Pulse Resp BP Pulse Ox 98.0 F 90 14 124/82 H 99 08/13/20 09:14 08/13/20 09:15 08/13/20 09:14 08/13/20 09:15 08/13/20 03:41 Oxygen Delivery Method Room Air Weight: 160 lb 12.8 oz Body Mass Index (BMI) 24.4 Intake & Output: Intake and Output for Last 24 Hours 08/11/20 08/12/20 08/13/20 23:59 23:59 23:59 Intake Total 280.00 / 280.00 2041.97 / 2041.97 Output Total 1525 / 1525 300 / 300 Balance 280.00 / 280.00 516.97 / 516.97 -300 / -300 Lab / Micro Data Result Diagrams: 08/11/20 19:55 Micro: Microbiology 08/11/20 20:00 Mucosa - Nose SARS-CoV-2 Antigen (Rapid) - Final Physical Exam Const alert, oriented x3 and no apparent distress HEENT normocephalic Head and Scalp: atraumatic Neck full ROM Resp normal respiratory effort, no retractions and no use of accessory muscles Extremity normal to inspection, full ROM and no clubbing, cyanosis or edema Skin no rashes or lesions noted Psych mental status grossly normal, affect normal, speech normal and activity/motor behavior normal Assessment & Plan (1) (spontaneous vaginal delivery): PLAN: day 1. Pain well controlled. Bottlefeeding. Okay to discharge home today if okay with sanitarian inspector.
--- NOTE | 2020-08-13 09:36 | PCM.DC ---
Discharge Instructions Diet Discharge Diet: No restrictions Activity Discharge Activity: Return to Normal Activity, May Drive and May Shower May resume sexual activity in: 4-6 weeks Weight Bearing Status: Full weight bearing Follow Up Care Please Follow Up With: Yolie Ramon MD When: 3 week telehealth visit, 6 weeks visit Test Results: Test results from this visit will be discussed in further detail at your follow-up appointment, if applicable. Discharge Plan Admission Admit Date/Time: 08/11/20 19:22 Attending Provider: Yolie Ramon Discharge Orders/Prescriptions Prescriptions: No Action with DHA-Folic Acid 1 EACH tablet,chewable 1 ea PO DAILY RF: 0 venlafaxine [Effexor XR] 150 mg Capsule,Extended Release 24hr 150 mg PO DAILY RF: 0 Disposition Discharge Orders: Discharge Patient (Routine); Ordered 08/13/20 Ordered By: Dr. Matthew Lyons
[2020-08-13] MEDS: Prenatal Vits Tablet 1 TABLET PO (10:52)
[2020-08-13] MEDS: Venlafaxine XR 150 MG Capsule PO (10:53)
[2020-08-13 12:50] VITALS: BP 117/77; PULSE 77
[2020-08-13 12:51] VITALS: BP 117/77; PULSE 77; RESP 14; TEMP 36.2
--- NOTE | 2020-08-13 13:02 | CASEMGMT ---
Social Work Assessment Labor and Delivery Unit Date of Referral: 08/12/20 Time of Referral:? 14:34 Referred By: Dr. Yolie Funes Date of Intervention: ??08/13/20 Time of Intervention:? 10:30 am Reason for Referral:? Anxiety, recent loss of father on meds, FOB recently out of longterm. History obtained from: Chart review, patient and patient?s mother (Kim). Patient gave this singer songwriter verbal permission to speak to her in the presence of her mother. Household composition:? Patient and baby will be living with patient?s mother (Kim) as well as patient?s other child, Charla age 2, and patient?s adult brother. The family resides in a house in [facility]. Patient reports she feels safe at home. Patient's parent/guardian status:? ?Patient reports that she has custody of her 2-year-old, Charla. Medical History: Patient is Now P2 with delivery. She received her care from Dr. Yolie Funes, who patient and her mother identify as being very supportive. Albright was born on 08/12/20 with agars of 8 and 9. Albright weight is 3311grams. Patient plans to bottle feed the . Patient?s cost and sales record supervisor is Dr. Graham. staff air tactical officer reports that patient did not wake up and feed the child stating, ?in a few?. SW discussed this with patient and patient said, ?I am feeding him today?. staff air tactical officer indicated that patient?s mother is asking appropriate questions regarding care and feeding of the child. Patient reports she is ?not going to use? any control as she ?doesn?t plan to have sex?. SW educated patient on options related to control included control pill, IUD, condoms etc. and encouraged patient to be planful regarding her reproductive health and control. Educational Status: Patient reports that she graduated from [employer] program. She reports that she had an IEP as ?I need things explained to me a couple of times?. Financial Status: Patient is unemployed. Previously worked at [employer] in [place]. Patient receives food stamps in [facility]. Patient said that she plans NOT to enroll in WIC as ?I will just use my food stamps to buy formula?. Patient?s mother inquired about child support from father of the baby. Patient?s mother said that father of the baby sends money occasionally but does not pay it consistently. Encouraged patient and patient?s mother to contact child support in [facility] for services. Infant Supplies:?? Patient and her mother, child?s grandmother, confirmed that they have all supplies including diapers, crib and clothing. Childcare/Caregiver(s):? Patient will be living with her mother, child?s grandmother. Patient?s mother is currently at home, as she is unemployed, so she reports she will be there ?29/10?. Patient?s grandmother said that if she would need to ?run out? that patient?s aunt lives next door and is available. Patient?s grandmother also stated that patient?s other aunt, who resides in [facility], ?stops over all the time?. Patient confirmed that her support includes her Aunt Michelle, who resides next [facility] and Aunt Regine, who resides in [place]. Transportation:?? Patient, and patient?s mother confirmed, that patient?s mother provides transportation for patient and her children. Programs/Agencies Involved: ???Patient said that she does not want referral to Help Me Grow Program. SW explained the benefits of the program, but patient continued to decline referral. Patient receives food stamps and has [employer]. ? Children Services/Legal Issues:??? Patient denied any current child protective services involvement. Patient denied any current legal issues involving her. Behavioral Health Issues: ??Patient reports that she had depression after the of her 2-year-old, Charla. Patient said that she was put on Effexor. Patient said that she is currently on 150mg of Effexor and plans to stay on her medication. Patient said that when she experienced depression in the past she spoke to MD, Dr. Sage. Patient said that she feels comfortable speaking to MD if mental health needs arise. ? Family/Social Stressors:? Patient reports that she is ?not sure? if she and the father of the baby are together. The father of the baby is [place], and patient reports he is currently out of longterm. Patient said that father of the baby and her have been together for 3 years. Patient said that the father of the baby is going to ?rehab? in [facility]. Patient said that the father of the baby was not present at the ?s as ?I wasn?t sure because of COVID?. Patient said that [place] is father to her 2-year-old, Charla. Patient said that father of the baby is aware of the ?s . Patient said that she did not include the father of the baby?s name on the certificate on the but had previously included him on the certificate for their 2-year-old child. ? Patient denied any domestic violence. Patient said that the father of the baby uses drugs (k-2 and Spice). Patient denied any drug or alcohol use. Tox screen dated 01/19/20 was negative. ? Support Systems: Patient reports that her support includes her mother, Aunt Michelle and Aunt Regine. ? Depression and Anxiety/Shaken Baby/Safe Sleeping Patient was educated on Post- Depression and increased risk due to past depression history. Patient was educated on safe sleeping and patient indicated she knew to on his back. Patient asked, ?when should I do tummy time?? and patient was encouraged to speak to her cost and sales record supervisor. Patient said that she will call cost and sales record supervisor before 5pm today to schedule an appointment. Patient was educated on shaken baby syndrome. ? Patient was provided handouts on resources in [facility], Safe Sleep handout and Post- Depression. ? ? ASSESSMENT:? SW encouraged patient to participate in [facility] Grow ([facility]) but she declined. She reports that she did not participate in [facility] in the past. Patient appears to have good support from her mother and aunts. Patient?s mother voices she is home but if she needed to ?run out? the patient?s aunt lives next door and is a support. Patient appears to benefit from repeated prompting in order to learn. ? Patient and her mother voiced that patient?s older child is excited to be a ?big sister? but then states ?I am still the baby?. ? SW noted that during the interview the was in the [place] and when made noise that the patient would look at the child. Patient appeared to enjoy speaking about the and would become bright and reactive when speaking about the . Patient?s mother was also very bright when speaking about the . ? PLAN: Patient will be discharged home at this time with the . Patient will follow up with DIESEL LOCOMOTIVE FIRER and reports feels comfortable with her. Patient also voices she will follow up with [facility]. ?? No other services requested or indicated. Rosa ALMARAZ
== END 2020-08-13 14:30 | disposition home or self-care (01) | DRG 560 ==
PROVIDERS: Admitting Provider Obstetrics & Gynecology; Visit Provider Obstetrics & Gynecology
DX: O36.8130 Decreased fetal movements, third trimester, not applicable or unspecified (principal); O76 Abnormality in fetal heart rate and rhythm complicating labor and delivery; O71.4 Obstetric high vaginal laceration alone; R59.1 Generalized enlarged lymph nodes; Z3A.37 37 weeks gestation of pregnancy; Z37.0 Single live birth
CPT/HCPCS: 36415; 59025; 59050; 85025; 85027; 86308; 86850; 86900; 86901; 87426; 99218; J7120; A4216; G0378; J2405

== ENCOUNTER → 2021-10-18 | Outpatient (CLI) | payer MEDICAID, SELFPAY ==
[2021-10-24 13:53] LABS: HPV APTIMA, High Risk Negative (Negative); HPV Reflexed? YES, CHARGE PATIENT
== END | disposition home or self-care (01) ==
PROVIDERS: Visit Provider Obstetrics & Gynecology
DX: Z12.4 Encounter for screening for malignant neoplasm of cervix (principal)
CPT/HCPCS: 87624; 88175; G0145